=== PATIENT | female | born 1985 | race Caucasian/White ===

== ENCOUNTER → 2016-12-09 | Outpatient (CLI) | payer OTHER | LOC: BHSO 09:41 | DX: F45.21 Hypochondriasis (principal) ==

== ENCOUNTER → 2016-12-29 | Outpatient (CLI) | payer OTHER | LOC: BHSO 10:00 | DX: F40.10 Social phobia, unspecified (principal) ==

== ENCOUNTER → 2017-01-07 | Outpatient (CLI) | payer OTHER | LOC: BHSO 09:48 | DX: F45.21 Hypochondriasis (principal) ==

== ENCOUNTER → 2017-01-14 | Outpatient (CLI) | payer OTHER | LOC: BHSO 09:50 | DX: F45.21 Hypochondriasis (principal) ==

== ENCOUNTER → 2017-01-21 | Outpatient (CLI) | payer OTHER | LOC: BHSO 09:49 | DX: F45.21 Hypochondriasis (principal) ==

== ENCOUNTER → 2017-01-28 | Outpatient (CLI) | payer OTHER | LOC: BHSO 09:54 | DX: F45.21 Hypochondriasis (principal) ==

== ENCOUNTER → 2017-02-11 | Outpatient (CLI) | payer OTHER | LOC: BHSO 09:57 | DX: F45.21 Hypochondriasis (principal) ==

== ENCOUNTER → 2017-02-24 | Outpatient (CLI) | payer OTHER | LOC: BHSO 09:53 | DX: F45.21 Hypochondriasis (principal) ==

== ENCOUNTER → 2017-03-17 | Outpatient (CLI) | payer OTHER | LOC: BHSO 09:53 | DX: F45.21 Hypochondriasis (principal) ==

== ENCOUNTER → 2017-03-31 | Outpatient (CLI) | payer OTHER | LOC: BHSO 09:55 | DX: F45.21 Hypochondriasis (principal) ==

== ENCOUNTER → 2017-05-19 | Outpatient (CLI) | payer OTHER | LOC: BHSO 09:49 | DX: F45.21 Hypochondriasis (principal) ==

== ENCOUNTER → 2017-06-10 | Outpatient (CLI) | payer OTHER | LOC: BHSO 09:48 | DX: F45.21 Hypochondriasis (principal) ==